=== PATIENT | male | born 1995 | race Hispanic/Latino ===

== ENCOUNTER 2017-06-23 21:04 | Emergency (ER) | payer OTHER ==
[2017-06-23] MEDS ORDERED: FLUORESCEIN SODIUM 0.6 MG/WRAP ONE (21:08)
[2017-06-23] MEDS ORDERED: TETRACAINE HCL 0.5% 2ML OPTH ONE (21:08)
[2017-06-23] MEDS ORDERED: TETANUS & DIPHTHERIA TOX,ADULT 0.5 ML VIAL ONE (21:33)
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
== END 2017-06-23 22:43 | disposition home or self-care (01) ==
LOC: ER 21:04
DX: S05.01XA Injury of conjunctiva and corneal abrasion without foreign body, right eye, initial encounter (principal); Y04.2XXA Assault by strike against or bumped into by another person, initial encounter; Y93.9 Activity, unspecified; Y92.149 Unspecified place in prison as the place of occurrence of the external cause; Z23 Encounter for immunization; Z72.0 Tobacco use
CPT/HCPCS: 70450; 70486; 72125; 76377; 90714; 99284